=== PATIENT | female | born 1985 | race Caucasian/White ===

== ENCOUNTER → 2019-05-08 13:03 | Outpatient (CLI) | payer BC, SELFPAY ==
--- NOTE | ~2019-05-08 | US_ITS ---
EXAMINATION: US pelvic complete DATE: 05/08/2019 13:22 INDICATION: Abnormal uterine bleeding Comparison:No prior studies for comparison. TECHNIQUE: Multiple transabdominal sonographic images of the pelvis performed. FINDINGS: The uterus measures 7.2 x 3.4 x 3.2 cm. The endometrial complex measures 6 mm. The right ovary measures 1.9 x 1.9 x 1.4 cm and the left ovary measures 3.3 x 2.3 x 2.6 cm. There ar e small follicles in each ovary. There is no free fluid in the pelvis. There are no abnormal masses seen on either side. IMPRESSION: 1. Normal pelvic ultrasound. Reviewed, dictated and finalized at location A.
== END ==
PROVIDERS: PCP Family Medicine; Visit Provider Nurse Practitioner
DX: N93.8 Other specified abnormal uterine and vaginal bleeding (principal)
CPT/HCPCS: 76856

== ENCOUNTER 2020-03-01 08:54 | Outpatient (NON) | payer SELFPAY ==
[2020-03-01 19:43] LABS: SARS-CoV-2 RNA PCR Negative
== END 2020-03-01 08:55 ==
PROVIDERS: PCP Family Medicine; Visit Provider Family Medicine
DX: R19.7 Diarrhea, unspecified (principal); Z20.822 Contact with and (suspected) exposure to COVID-19
CPT/HCPCS: C9803; U0003

== ENCOUNTER → 2020-09-03 06:31 | Outpatient (CLI) | payer BC, SELFPAY ==
[2020-09-03 21:20] LABS: SARS-CoV-2 RNA PCR Negative
== END ==
PROVIDERS: PCP Family Medicine; Visit Provider Family Medicine
DX: Z01.812 Encounter for preprocedural laboratory examination (principal); Z20.822 Contact with and (suspected) exposure to COVID-19
CPT/HCPCS: C9803; U0003; U0005

== ENCOUNTER → 2020-12-21 02:45 | Outpatient (CLI) | payer BC, SELFPAY ==
[2020-12-21 17:36] LABS: SARS-CoV-2 RNA PCR Negative
== END ==
PROVIDERS: PCP Family Medicine; Visit Provider Family Medicine
DX: Z20.822 Contact with and (suspected) exposure to COVID-19 (principal); J01.90 Acute sinusitis, unspecified
CPT/HCPCS: C9803; U0003; U0005

== ENCOUNTER → 2021-02-23 02:25 | Outpatient (CLI) | payer BC, SELFPAY ==
[2021-02-23 20:33] LABS: SARS-CoV-2 RNA PCR Negative
== END ==
PROVIDERS: PCP Family Medicine; Visit Provider Family Medicine
DX: J02.9 Acute pharyngitis, unspecified (principal); Z20.822 Contact with and (suspected) exposure to COVID-19
CPT/HCPCS: C9803; U0003; U0005

== ENCOUNTER 2021-10-11 01:23 | Day surgery (SDC) | payer BC, SELFPAY ==
[2021-10-06 13:57] VITALS: BMI 29.2
--- NOTE | 2021-10-06 15:20 | SUR.PREOP ---
Report to the Outpatient Waiting Room, entrance under the green pavilion located off [facility], at time 0600 on date . OR Time: . - You and your visitor will be asked to self-screen and do not enter if you have any COVID symptoms. - Only one visitor and NO children visitors are allowed at this time. - The patient visitor is requested to leave or wait in car when not with patient due to restrictions. - A mask is required within the hospital. Patients may have clear liquids (water, carbonated beverages, clear teas, apple juice) until 3 hours prior to surgery with a maximum of 20 ounces. - No food from midnight until time of surgery - Infants may have breast milk until 4 hours before surgery, formula 6 hours prior to surgery. - Children will be allowed to drink immediately following surgery. If applicable, please bring a bottle or sippy cup to assist with drinking. Juice, water, soda, and popsicles are readily available. For infants on formula, please bring formula the day of surgery. Pacifiers are allowed. Take the following medications with a SIP of water the morning of surgery: Medications to discontinue per physician Date to take last dose Please no make-up, nail portuguese, hairspray, perfume, deodorant, or body powder the day of surgery. No jewelry (including any body piercings) or valuables the day of surgery, leave them at home. Please take a shower or bath the night before, or the morning of, surgery with an antibacterial soap. Wear comfortable, loose fitting clothing. Children are encouraged to wear pajamas. - Jewelry must be removed prior to entering the operating room. Rings and piercings that are not removed may be cut off. - The hospital will not accept responsibility for valuables. - Please leave all valuables, including medications, at home the day of surgery. If you are going home after surgery, a licensed motor coach driver must drive you home. - NO public transportation without another adult. - We recommend that an adult stay with you for 24 hours following discharge. - We also recommend that you do not drive, make important decision, drink alcoholic beverages, or take any drugs that were not prescribed by your health care provider for at least 24 hours after your discharge time. For Pediatric surgeries, we recommend two adults accompany the child home (only one inside the building at this time). Follow any additional instructions given to you from your surgeon. If you or anyone in your household have experienced Covid symptoms in the past week, please notify your surgeon or the nurse liaison at the phone number below for possible testing. Telephone instructions given to and asked if any additional questions and then verbalized understanding. Patient advised to call surgeon office or pre surgery nurse liaison [phone] if any additional questions.
--- NOTE | 2021-10-06 15:21 | SUR.PREOP ---
Report to the Outpatient Waiting Room, entrance under the green pavilion located off [facility], at time 0600 on date 10/11/21. OR Time: 0730. - You and your visitor will be asked to self-screen and do not enter if you have any COVID symptoms. - Only one visitor and NO children visitors are allowed at this time. - The patient visitor is requested to leave or wait in car when not with patient due to restrictions. - A mask is required within the hospital. Patients may have clear liquids (water, carbonated beverages, clear teas, apple juice) until 3 hours prior to surgery with a maximum of 20 ounces. - No food from midnight until time of surgery - Infants may have breast milk until 4 hours before surgery, infant formula 6 hours prior to surgery. - Children will be allowed to drink immediately following surgery. If applicable, please bring a bottle or sippy cup to assist with drinking. Juice, water, soda, and popsicles are readily available. For infants on formula, please bring formula the day of surgery. Pacifiers are allowed. Take the following medications with a SIP of water the morning of surgery: ALPRAZOLAM, ARIPIPRAZOLE, BUPROPION IF NEEDED Medications to discontinue per physician Date to take last dose Please no make-up, nail latvian, hairspray, perfume, deodorant, or body powder the day of surgery. No jewelry (including any body piercings) or valuables the day of surgery, leave them at home. Please take a shower or bath the night before, or the morning of, surgery with an antibacterial soap. Wear comfortable, loose fitting clothing. Children are encouraged to wear pajamas. - Jewelry must be removed prior to entering the operating room. Rings and piercings that are not removed may be cut off. - The hospital will not accept responsibility for valuables. - Please leave all valuables, including medications, at home the day of surgery. If you are going home after surgery, a licensed dinkey driver must drive you home. - NO public transportation without another adult. - We recommend that an adult stay with you for 24 hours following discharge. - We also recommend that you do not drive, make important decision, drink alcoholic beverages, or take any drugs that were not prescribed by your health care provider for at least 24 hours after your discharge time. For Pediatric surgeries, we recommend two adults accompany the child home (only one inside the building at this time). Follow any additional instructions given to you from your surgeon. If you or anyone in your household have experienced Covid symptoms in the past week, please notify your surgeon or the nurse liaison at the phone number below for possible testing. Telephone instructions given to and asked if any additional questions and then verbalized understanding. Patient advised to call surgeon office or pre surgery nurse liaison [phone] if any additional questions.
--- NOTE | 2021-10-06 15:23 | SUR.PREOP ---
Report to the Outpatient Waiting Room, entrance under the green pavilion located off [facility], at time 0600 on date 10/11/21. OR Time: 0730. - You and your visitor will be asked to self-screen and do not enter if you have any COVID symptoms. - Only one visitor and NO children visitors are allowed at this time. - The patient visitor is requested to leave or wait in car when not with patient due to restrictions. - A mask is required within the hospital. Patients may have clear liquids (water, carbonated beverages, clear teas, apple juice) until 3 hours prior to surgery with a maximum of 20 ounces. - No food from midnight until time of surgery - Infants may have breast milk until 4 hours before surgery, infant formula 6 hours prior to surgery. - Children will be allowed to drink immediately following surgery. If applicable, please bring a bottle or sippy cup to assist with drinking. Juice, water, soda, and popsicles are readily available. For infants on formula, please bring formula the day of surgery. Pacifiers are allowed. Take the following medications with a SIP of water the morning of surgery: ALPRAZOLAM, ARIPIPRAZOLE, BUPROPION IF NEEDED Medications to discontinue per physician VITAMINES AND SUPPLIMENTS 3 DAYS PRIOR Date to take last dose 10/11/21 Please no make-up, nail jamaican, hairspray, perfume, deodorant, or body powder the day of surgery. No jewelry (including any body piercings) or valuables the day of surgery, leave them at home. Please take a shower or bath the night before, or the morning of, surgery with an antibacterial soap. Wear comfortable, loose fitting clothing. Children are encouraged to wear pajamas. - Jewelry must be removed prior to entering the operating room. Rings and piercings that are not removed may be cut off. - The hospital will not accept responsibility for valuables. - Please leave all valuables, including medications, at home the day of surgery. If you are going home after surgery, a licensed skidder driver must drive you home. - NO public transportation without another adult. - We recommend that an adult stay with you for 24 hours following discharge. - We also recommend that you do not drive, make important decision, drink alcoholic beverages, or take any drugs that were not prescribed by your health care provider for at least 24 hours after your discharge time. For Pediatric surgeries, we recommend two adults accompany the child home (only one inside the building at this time). Follow any additional instructions given to you from your surgeon. If you or anyone in your household have experienced Covid symptoms in the past week, please notify your surgeon or the nurse liaison at the phone number below for possible testing. Telephone instructions given to MELODY HANSON and asked if any additional questions and then verbalized understanding. Patient advised to call surgeon office or pre surgery nurse liaison [phone] if any additional questions.
[2021-10-11 06:28] VITALS: BP 125/79; PULSE 87; RESP 20; TEMP 36.6; O2SAT 100
--- NOTE | 2021-10-11 06:46 | WPDANESEPPF ---
Anes - Initial Pre Proc Eval Procedure: Operation Date: 10/11/21 07:30 Proposed Procedures p Right Open Carpal Tunnel Release, Right Ulnar Neuroplasty at Elbow - Valentino Botello MD Date/Time: 10/11/21 06:46 Surgeon: Valentino Botello MD Pre Op Diagnosis: Right carpal tunnel syndrome Patient Data Age: 36 Gender: F Height: 1.57 m Weight: 72.57 kg Allergies Allergy/AdvReac Type Severity Reaction Status Date / Time gluten Allergy Intermediate GASTRIC Verified 10/06/21 15:02 UPSET hydrocodone Allergy Intermediate VOMITTING Verified 10/06/21 15:02 Sulfa (Sulfonamide Allergy Intermediate HIVES Verified 10/06/21 15:02 Antibiotics) amitriptyline AdvReac Unknown AFFECTS Verified 10/06/21 15:02 COORDINATION levofloxacin AdvReac Unknown AFFECTS Verified 10/06/21 15:02 COORDINATION Home Medications Medication Instructions Recorded Confirmed Type norgestrel 0.3 mg-ethinyl 1 tablet PO DAILY 01/08/19 10/06/21 History estradiol 30 mcg tablet (Low-Ogestrel (28)) zolmitriptan 5 mg tablet (Zomig) See Rx Instructions PO .COMPLEX 01/08/19 10/06/21 History valacyclovir 1 gram tablet 1,000 mg PO .COMPLEX #30 tabs 01/12/19 10/06/21 Rx clindamycin phosphate 1 % lotion 1 applic topical BID #60 mL 11/19/19 10/06/21 Rx cyanocobalamin (vitamin B-12) 1,000 mcg PO DAILY #90 tabs 07/19/20 10/06/21 Rx 1,000 mcg tablet bupropion HCl 300 mg 24 hr tablet, 300 mg PO QAM #90 tabs 01/18/21 10/06/21 Rx extended release (Wellbutrin XL) Linzess 72 mcg capsule 72 mcg PO DAILY #30 caps 04/06/21 10/06/21 Rx (linaclotide) trazodone 50 mg tablet 50 mg PO QHS PRN insomnia #30 tabs 04/10/21 10/06/21 Rx alprazolam 0.5 mg tablet 0.5 mg PO .COMPLEX PRN anxiety #90 05/08/21 10/06/21 Rx tabs montelukast 10 mg tablet 10 mg PO DAILY #90 tabs 05/09/21 10/06/21 Rx aripiprazole 2 mg tablet (Abilify) 2 mg PO . b.i.d. #180 tabs 07/25/21 10/06/21 Rx pantoprazole 40 mg tablet,delayed 40 mg PO QAM #90 tabs 08/07/21 10/06/21 Rx release lisinopril 10 mg tablet 10 mg PO DAILY #30 tabs 08/08/21 10/06/21 Rx Patient hx anesthesia problems: none Family hx anesthesia problems: none Results Review: All pre-operative results and documents have been reviewed as part of the pre-operative evaluation. [facility] Past Medical History Medical History Acute bronchitis Acute non-recurrent maxillary sinusitis Acute sinusitis, unspecified Alopecia BMI 31.0-31.9,adult BMI 35.0-35.9,adult Cough Diarrhea Elevated liver enzymes Encounter for screening for COVID-19 (12/21/20) COVID test 12/21/2020 was negative Exposure to COVID-19 virus Fatigue Folate deficiency anemia Folliculitis Hirsutism Irritable bowel syndrome with constipation Low ferritin level (~05/16/21) ferritin level low at 7 with iron 60 and 17% saturation On 05/16/2021. Mixed hyperlipidemia Morbid obesity with BMI of 40.0-44.9, adult Motion sickness Obesity (BMI 30.0-34.9) Oral herpes Otitis media, right PCOS (polycystic ovarian syndrome) Pharyngitis UTI (urinary tract infection) Vitamin B12 deficiency anemia Vitamin D deficiency, unspecified Surgical History Surgical History History of gastric bypass Family History Family History Grandparent Diabetes mellitus Family history of malignant neoplasm of breast Family history of malignant neoplasm of esophagus Mother Hypertension Father Patient's father is in good health Social History Social History Smoking status: Never smoker Alcohol intake: never Substance use: never Substance use type: does not use Living arrangements: with family Spiritual care concerns: No Anes - Eval Final PreProcedure Day of Procedure 10/11/21 06:46 Patient weight: obese Heart: regular rate and
[2021-10-11] MEDS: SCOPOLAMINE 1.5 MG PATCH TRANSDERM (07:00)
[2021-10-11] MEDS: LACTATED RINGERS 1,000 ML 30 ML IV CONT (07:05)
--- NOTE | 2021-10-11 07:17 | WPDHPUPDATE1 ---
History and Physical Update Update Date/Time: 10/11/21 07:17 History and Physical has been reviewed, including an updated exam of the patient. There are NO changes in the patient's condition. Risks, benefits, and alternatives have been discussed and questions answered. Patient agrees to proceed with procedure.
[2021-10-11] MEDS: LIDO 1%/EPINEPHRINE 1:100,000 10 ML VIAL INFILTRATE (07:45)
--- NOTE | 2021-10-11 07:56 | SUR.OPER ---
carpal tunnel [id number] neuroplasty at elbow [id number]
[2021-10-11 08:40] VITALS: BP 116/79; PULSE 67; RESP 12; O2SAT 94
--- NOTE | 2021-10-11 08:41 | P.OP_ITS ---
Procedure Note - Detailed Date of Procedure 10/11/21 Pre-op Diagnosis Right carpal tunnel syndrome. Right cubital tunnel syndrome. Post-op Diagnosis Same Procedure Performed Right open carpal tunnel release and right ulnar neuroplasty at the elbow with subcutaneous anterior transposition Surgeon Valentino Botello MD Airplane Patroller Aaliyah Manzano Anesthesia MAC Description of Procedure The carpal tunnel and cubital tunnel sites were marked on the patient's extremity in the holding area with her cooperation. And taken to the operating room placed supine on the operating table. She was given IV sedation with LMA and the right upper extremity was prepped and draped in usual fashion. A time- out was held and confirmed. The sites were marked for surgical incisions and locally infiltrated with 1% lidocaine with epinephrine. The extremity was exsanguinated with an Mark wrap and the tourniquet inflated to 250 mmHg. The surgery was begun in the hand 1st with an incision as marked. Blunt dissection through the subcutaneous tissue revealed the palmar aponeurosis. This was well exposed and this and the transverse retinaculum were incised with a 15. Blade opening the canal. Under 3 point retraction retinaculum was divided distally and then proximally to completely release it. No unusual anatomy was noted. The skin was closed with interrupted 5 0 nylon suture. Attention was turned to the elbow this was flexed and supported on folded towels. The incision was made and dissection was carried down to the medial epicondyle. There was significant muscle crossing over the cubital tunnel. This had pushed the nerve up onto the crest of the medial epicondyle. The fascia between the 2 was carefully divided. Proximally there was little area of compression and the digit could be laid alongside the nerve.. on distally the fascia was divided past the area of Mcdaniel's ligament and into the flexor muscle fascia. The Mcdaniel's ligament served as a very strong restrain causing kinking on the nerve as the elbow flexed I believe. Due to the extreme subluxation of this nerve. The nerve was mobilized the skin flap elevated a fascial flap was elevated off the medial epicondyle and the nerve was restrained anteriorly with 3-0 Monocryl sutures in the fascial tissue. There was no c ompression applied to the nerve. The tourniquet was released the site was examined for bleeding points some were electrocoagulated. The skin was then closed with intradermal 3-0 Monocryl sutures at multiple sites and the skin closed with glue.. The usual bandages were applied to both sites and the patient was discharged from the operating room stable condition. She has a prescription for oxycodone 6.. She requested that medication prior to the surgery. Estimated Blood Loss 5 Drains No Packing No Pathology None sent Complications No immediate complications Condition Stable Disposition Same day
[2021-10-11 09:05] VITALS: BP 110/78; PULSE 66; RESP 12
[2021-10-11] MEDS: fentaNYL CITRATE INJ (*CRX) 100 MCG/2 ML VIAL 25 MCG IV PUSH ×4 (09:05→09:47)
[2021-10-11 09:35] VITALS: BP 110/66; PULSE 65; RESP 12
[2021-10-11] MEDS: oxyCODONE HCL (*CRX) 5 MG TAB IR PO (09:35)
== END 2021-10-11 10:15 | disposition home or self-care (01) ==
PROVIDERS: PCP Family Medicine; Visit Provider Plastic Surgery
PROC: (CPT 64721; principal; 2021-10-11 07:30)
DX: G56.01 Carpal tunnel syndrome, right upper limb (principal); G56.21 Lesion of ulnar nerve, right upper limb; E78.5 Hyperlipidemia, unspecified; K58.1 Irritable bowel syndrome with constipation; B00.9 Herpesviral infection, unspecified; E28.2 Polycystic ovarian syndrome; D51.3 Other dietary vitamin B12 deficiency anemia; E55.9 Vitamin D deficiency, unspecified; L68.0 Hirsutism; Z98.84 Bariatric surgery status; E66.9 Obesity, unspecified; Z68.28 Body mass index [BMI] 28.0-28.9, adult
CPT/HCPCS: 64721; 64718; A9270; J2250; J3010; J7120

== ENCOUNTER 2021-11-24 12:30 | Outpatient (RCR) | payer BC, SELFPAY ==
--- NOTE | 2021-11-03 14:27 | OTOPEVAL1 ---
Evaluation Information Assessment Status Evaluation Diagnosis s/p right CTR and right ulnar neuroplasty at the elbow with anterior subcutaneous transposition Onset 10/11/21 Subjective Information Patient reports soreness and tenderness in her surgical sites. She is right hand dominant. States she is unable to make a fist. Reports difficulties with driving, starting her car, holding/using a toothbrush (using left hand right now), or lifting her water bottle with the right hand. She is heavily favoring the left hand. Reports paresthesias in the ulnar 2 digits. Reported Pain Level Pain Score right elbow 4/10 right hand 2/10 Assessment OT Clinical Summary Marlin is referred to outpatient OT following right carpal tunnel release and right cubital tunnel release with anterior subcutaneous transposition of the ulnar nerve. She presents with a decline in right UE use due to deficits with residual weakness, stiffness, and pain. Skilled OT indicated for HEP instruction and progression, modalities, manual therapy, strengthening, and functional therapeutic exercise to facilitate return to work and return to dominant hand use with ADLs. Plan of Care Interventions Therapeutic Exercise,Manual Therapy,Therapeutic Activities,Hot Pack/Cold Pack OT Services Indicated Yes Treatment Frequency and 2x/week for 3 weeks Duration These treatments will address the objective and functional deficits as defined above. The patient will be advanced safely and appropriately in order for the patient to progress towards his/her prior level of function. Additional exercises will be introduced and as well as a comprehensive home exercise program upon discharge, if needed, ?to ensure carryover of functional gains achieved in the clinic. This treatment plan has been reviewed and agreement upon by the patient.
--- NOTE | 2021-11-24 13:14 | OTOPDC ---
Assessment and note entered by Refugio Rodriguez, OTR/L, CHT Evaluation Information Assessment Status Discharge Diagnosis s/p right CTR and right ulnar neuroplasty at the elbow Onset 10/11/21 Subjective Information Patient reports huge improvements functionally, not relying so much on her left/non dominant hand. She is back to being able to brush her teeth with the right hand, starting her car with the right hand about 80% of the time (improved from 0%), and holding/lifting her water bottle. She states her only limitations at this time are heavy lifting (i.e. big potted plants, full laundry basket). She reports continued residual pain from using her arm more. Reported Pain Level Pain Score 3,3: Self Report Additional Pain Score Comments Continues to have fluctuating hand and elbow pain. Rating both 3/10 today. She does notice increased sharp pains when she uses her arm repetitively. She is independent with non-medication pain mgmt (heat, massage, ROM, rest, etc.) Assessment OT Clinical Summary Marlin is referred to outpatient OT following right carpal tunnel release and right cubital tunnel release with anterior subcutaneous transposition of the ulnar nerve. She has made excellent progress with improved ROM and strengthening which has transferred into improved functional right UE use for ADLs. She continues to have some residual pain and weakness, but she is currently independent with non-medication pain management techniques as well as a gradual strengthening program. She understands that her residual pain will take time to feel better. She is in agreement with discharge today. No further skilled OT indicated at this time. Plan of Care OT Services Indicated No
== END 2021-11-24 16:04 | disposition home or self-care (01) ==
LOC: ANHOT 12:30
PROVIDERS: PCP Family Medicine; Visit Provider Plastic Surgery
DX: Z47.89 Encounter for other orthopedic aftercare (principal)
CPT/HCPCS: 97018; 97035; 97110; 97140; 97165

== ENCOUNTER 2022-02-23 02:28 | Day surgery (SDC) | payer BC, SELFPAY ==
[2022-02-20 14:13] VITALS: BMI 28.0
--- NOTE | 2022-02-22 14:02 | PM.HPGS ---
History of Present Illness History of Present Illness Consent: Risks, benefits, and alternatives have been discussed and questions answered. Patient agrees to proceed with procedure. Chief complaint: abdominal pain, diarrhea Narrative: Marlin Marcelino is a 36 year old female with hx of HTN, GERD, Polycystic ovarian disease, hiatal hernia,? gastric bypass surgery 08/2020,and cholecystectomy 10/2020 is here for evaluation of diarrhea for past 2 months with associated left sided abdominal pain. Reports 1-6 bowel movements per day that are very pasty to watery in nature.? Reports urgency with bowel movements with occasional nighttime awakenings.? she occasionally sees bright red blood with stool but believes this is related to hemorrhoids.? Reports associated left-sided abdominal pain that radiates across the suprapubic area and deep down into her rectum.? states pain is constant and progressively getting worse. She had a cholecystectomy 2 years ago does remember having loose stools for a while afterwards. Just a couple days ago our office call in a prescription for cholestyramine which she has taken for couple days so far. Review of Systems Review of Systems: All systems reviewed & are unremarkable except as noted in HPI and below PMFSH Past Medical History Medical History Acute bronchitis Acute non-recurrent maxillary sinusitis Acute sinusitis, unspecified Alopecia BMI 28.0-28.9,adult BMI 29.0-29.9,adult BMI 31.0-31.9,adult BMI 35.0-35.9,adult Chronic anxiety Cough COVID-19 (~08/2021) sick for [address] of the abdomen and pelvis in the ER on 01/24/2022 was unremarkable. Elevated liver enzymes AST 34 with ALT elevated at 53 on 05/16/2021. AST elevated at 58 with ALT elevated at 93 in the ER on 01/24/2022. Encounter for screening for COVID-19 (12/21/20) COVID test 12/21/2020 was negative Exposure to COVID-19 virus Fatigue Folate deficiency anemia Folic acid low at 5.0 on 05/31/2020. Level normal at 18.4 on 05/16/2021. Folliculitis Hirsutism Hypertension Irritable bowel syndrome with constipation Low ferritin level (~05/16/21) ferritin level low at 7 with iron 60 and 17% saturation On 05/16/2021. Mixed hyperlipidemia Total cholesterol 220 with triglycerides 66, HDL 65, LDL 139 with ratio 3.4 on 05/31/2020. Total cholesterol 141, triglycerides 116, HDL 40 and LDL 80 on 05/16/2021. Morbid obesity with BMI of 40.0-44.9, adult Motion sickness Obesity (BMI 30.0-34.9) Oral herpes Otitis media, right Overweight (BMI 25.0-29.9) PCOS (polycystic ovarian syndrome) Pharyngitis UTI (urinary tract infection) Vitamin B12 deficiency anemia Vitamin D deficiency, unspecified Surgical History Surgical History History of gastric bypass Family History Family History Grandparent Diabetes mellitus Family history of malignant neoplasm of breast Family history of malignant neoplasm of esophagus Mother Hypertension Father Patient's father is in good health Social History Social History Smoking status: Never smoker Alcohol intake: never Substance use: never Substance use type: does not use Lack of Transportation: No Lack of Food: Never True Current Housing: I Have Housing Concerned About Future Housing: No Difficulty Paying Gas/Electric Bills: No Difficulty Paying for Meds: No Currently Unemployed: No Education: Bachelor's Degree Difficulty w/ Childcare or Family Care: No Spiritual care concerns: No Meds Home Medications and Allergies Home Medications Medication Instructions Recorded Confirmed Type norgestrel 0.3 mg-ethinyl 1 tablet PO DAILY 01/08/19 02/20/22 History estradiol 30 mcg tablet (Low-Ogestrel (28)) zolmitriptan 5 mg tablet (Zomig) See Rx Instructio
[2022-02-23 07:01] VITALS: BP 120/76; PULSE 104; RESP 18; TEMP 36.5; O2SAT 97
[2022-02-23] MEDS: LACTATED RINGERS 1,000 ML 150 ML IV CONT (07:09)
--- NOTE | 2022-02-23 07:17 | WPDANESEPPF ---
Anes - Initial Pre Proc Eval Procedure: Operation Date: 02/23/22 08:00 Proposed Procedures p Colonoscopy - William Akins MD Date/Time: 02/23/22 07:17 Surgeon: William Akins MD Pre Op Diagnosis: abdominal pain, diarrhea Patient Data Age: 36 Gender: F Height: 1.57 m Weight: 69 kg Last Vital Signs Temp 36.5 C 02/23/22 07:01 Pulse 104 H 02/23/22 07:01 Resp 18 02/23/22 07:01 BP 120/76 02/23/22 07:01 Pulse Ox 97 02/23/22 07:01 O2 Del Method Room Air 02/23/22 07:01 Allergies Allergy/AdvReac Type Severity Reaction Status Date / Time Sulfa (Sulfonamide Allergy Intermediate HIVES Verified 02/23/22 06:53 Antibiotics) gluten AdvReac Intermediate GASTRIC Verified 02/23/22 06:53 UPSET hydrocodone AdvReac Intermediate Vomiting Verified 02/23/22 06:53 amitriptyline AdvReac Unknown AFFECTS Verified 02/23/22 06:53 COORDINATION levofloxacin AdvReac Unknown AFFECTS Verified 02/23/22 06:53 COORDINATION Home Medications Medication Instructions Recorded Confirmed Type norgestrel 0.3 mg-ethinyl 1 tablet PO DAILY 01/08/19 02/20/22 History estradiol 30 mcg tablet (Low-Ogestrel (28)) zolmitriptan 5 mg tablet (Zomig) See Rx Instructions PO .COMPLEX 01/08/19 02/20/22 History valacyclovir 1 gram tablet 1,000 mg PO .COMPLEX #30 tabs 01/12/19 02/20/22 Rx clindamycin phosphate 1 % lotion 1 applic topical BID #60 mL 11/19/19 02/20/22 Rx cyanocobalamin (vitamin B-12) 1,000 mcg PO DAILY #90 tabs 07/19/20 02/20/22 Rx 1,000 mcg tablet Linzess 72 mcg capsule 72 mcg PO DAILY #30 caps 04/06/21 02/20/22 Rx (linaclotide) trazodone 50 mg tablet 50 mg PO QHS PRN insomnia #30 tabs 04/10/21 02/20/22 Rx montelukast 10 mg tablet 10 mg PO DAILY #90 tabs 05/09/21 02/20/22 Rx pantoprazole 40 mg tablet,delayed 40 mg PO QAM #90 tabs 08/07/21 02/20/22 Rx release lisinopril 10 mg tablet 10 mg PO DAILY #30 tabs 08/08/21 02/20/22 Rx tramadol 50 mg tablet 50 - 100 mg PO Q6H PRN pain #6 tabs 10/11/21 02/20/22 Rx fluticasone propionate 50 1 spray intranasal BID #48 grams 10/31/21 02/20/22 Rx mcg/actuation nasal spray,suspension (Flonase Allergy Relief) scopolamine base 1 mg over 3 days 1 patch transdermal Q3D PRN motion 10/31/21 02/20/22 Rx transdermal patch sickness #10 ea bupropion HCl 150 mg 24 hr tablet, 150 mg PO QAM #30 tabs 11/02/21 02/20/22 Rx extended release (Wellbutrin XL) escitalopram oxalate 20 mg tablet 20 mg PO . q.h.s. #90 tabs 11/23/21 02/20/22 Rx (Lexapro) alprazolam 0.5 mg tablet 0.5 mg PO .COMPLEX PRN anxiety #90 11/27/21 02/20/22 Rx tabs aripiprazole 2 mg tablet (Abilify) 4 mg PO . q.a.m. #180 tabs 01/25/22 02/20/22 Rx hyoscyamine sulfate 0.125 mg tablet 0.125 mg PO QID 1 month #120 tabs 02/14/22 02/20/22 Rx cholestyramine (with sugar) 4 gram 4 g PO BID #348.6 grams 02/16/22 02/20/22 Rx oral powder (Questran) Patient hx anesthesia problems: none Family hx anesthesia problems: none Results Review: All pre-operative results and documents have been reviewed as part of the pre-operative evaluation. [facility] Past Medical History Medical History Acute bronchitis Acute non-recurrent maxillary sinusitis Acute sinusitis, unspecified Alopecia BMI 28.0-28.9,adult BMI 29.0-29.9,adult BMI 31.0-31.9,adult BMI 35.0-35.9,adult Chronic anxiety Cough COVID-19 (~08/2021) sick for [address] of the abdomen and pelvis in the ER on 01/24/2022 was unremarkable. Elevated liver enzymes AST 34 with ALT elevated at 53 on 05/16/2021. AST elevated at 58 with ALT elevated at 93 in the ER on 01/24/2022. Encounter for screening for COVID-19 (12/21/20) COVID test 12/21/2020 was negative Exposure to COVID-19 virus Fatigue Folate deficiency anemia Folic acid low at 5.0 on 05/31/2020. Level normal at 18.4 on 05/16/2021. Folliculitis Hirsutism Hypertension Irritable bowel syndrome with constipation L
[2022-02-23] MEDS: SIMETHICONE ORAL SUSPENSION 20 MG/0.3 ML 30 ML BOTTLE 0.6 ML IRRIGATION (08:01)
[2022-02-23 08:09] VITALS: BP 109/56; PULSE 75; RESP 17; O2SAT 100
[2022-02-23 08:19] VITALS: BP 107/63; PULSE 76; RESP 17; O2SAT 100
[2022-02-23 08:29] VITALS: BP 117/74; PULSE 74; RESP 18; O2SAT 100
== END 2022-02-23 08:35 | disposition home or self-care (01) ==
PROVIDERS: PCP Family Medicine; Visit Provider Internal Medicine Gastroenterology
PROC: 0DJD8ZZ Inspection of Lower Intestinal Tract, Via Natural or Artificial Opening Endoscopic (ICD-10-PCS; CPT 45378; principal; 2022-02-23 08:00)
DX: Z12.11 Encounter for screening for malignant neoplasm of colon (principal); R19.7 Diarrhea, unspecified; I10 Essential (primary) hypertension; K21.9 Gastro-esophageal reflux disease without esophagitis; E28.2 Polycystic ovarian syndrome; Z98.84 Bariatric surgery status; F41.9 Anxiety disorder, unspecified
CPT/HCPCS: 45380; 88305; J2704; J7120

== ENCOUNTER → 2022-10-02 15:44 | Outpatient (CLI) | payer BC, SELFPAY ==
--- NOTE | ~2022-10-02 | US_ITS ---
Renal-Bladder ultrasound Clinical History: Renal stone Technique: Real-time sonographic imaging of the kidneys and urinary bladder was performed. Findings: The right kidney measures 9.2 cm in length and the left kidney measures 10.1 cm. There is n o hydronephrosis or renal calculus identified. Renal cortical echogenicity is within normal limits. N o renal mass lesion is identified. The urinary bladder is moderately distended at the time of this exam. No intraluminal echoes are iden tified. No abnormal wall thickening is seen. Impression: Unremarkable ultrasound of the kidneys and urinary bladder. Reviewed, dictated and finalized at location . Impression: Unremarkable ultrasound of the kidneys and urinary bladder.
== END ==
PROVIDERS: PCP Family Medicine; Visit Provider Internal Medicine Nephrology
DX: N20.0 Calculus of kidney (principal)
CPT/HCPCS: 76775

== ENCOUNTER 2023-07-05 13:50 | Emergency (ER) | payer BC, SELFPAY ==
--- NOTE | ~2023-07-05 | CT_ITS ---
EXAMINATION: CT abdomen pelvis w con DATE: 07/05/2023 16:31 INDICATION: Left lower quadrant and epigastric abdominal pain. TECHNIQUE: Computed tomography (CT) of the abdomen and pelvis was performed with 100 mL Omnipaque 350 intravenous contrast. Automated exposure control and iterative reconstruction technique were employe d. The dose-length product was 261.06 mGy-cm. COMPARISON: CT abdomen and pelvis 11/25/2008 FINDINGS: The visualized portions of the lung bases demonstrate minimal atelectasis on the right. No pleural effusion. The heart size is normal. No pericardial effusion. The liver demonstrates focal alem atosis adjacent to the falciform ligament. The gallbladder is absent. The spleen, pancreas, adrenal g lands, and kidneys are normal. There are fibroids measuring up to 14 mm in the uterus. There are no d ilated loops of bowel. The appendix is normal. There are changes of gastric bypass procedure. There a re no pathologically enlarged lymph nodes. There is no free intraperitoneal fluid. There are changes of arthrodesis procedure of right sacroiliac joint. IMPRESSION: 1. Uterine fibroids. Reviewed, dictated and finalized at location A. IMPRESSION: 1. Uterine fibroids.
[2023-07-05 13:57] VITALS: BP 128/68; PULSE 91; RESP 19; TEMP 36.6; O2SAT 100
--- NOTE | 2023-07-05 15:31 | ED.ABDPAIN ---
HPI - Abdominal Pain General Chief Complaint: Abdominal Pain <JUAQUIN Regalado Last Filed: 07/05/23 15:38> Stated Complaint: Abdominal pain <JUAQUIN Regalado Last Filed: 07/05/23 15:38> Time Seen by Provider: 07/05/23 15:31 <JUAQUIN Regalado Last Filed: 07/05/23 15:38> Focused HPI: Patient is a 37 y/o female, with PMH of gastric bypass, who presents to the ED with c/o abdominal pain. Patient reports having pain throughout her lower abdomen, worse on the left side intermittently for the past few weeks. States pain has progressively worsened, been constant since yesterday. Had an outpatient CT scan on Saturday at [facility] which showed enteritis. Has been trying Tylenol w/o relief. Reports nausea with dry heaving, indigestion, diarrhea. Denies vomiting, rectal bleeding, melena, fevers. Patient saw her bariatric surgeon today and had an outpatient endoscopy, which she reports was normal. GENERAL: Well-appearing, well-nourished, and in no acute distress. HEAD: Normocephalic, atraumatic. CHEST: Clear to auscultation. ?No respiratory distress. HEART: Regular rate and rhythm.? ABD: TTP in LLQ, L mid abdomen, epigastric region. No rebound. Normoactive BS. NEURO: ?Alert and oriented x3. Patient screened in triage and initial orders placed.? ?Additional care and disposition to be based upon?diagnostic testing and treatment. <UJAQUIN Regalado Last Filed: 07/05/23 15:38> Source: patient <JUAQUIN Regalado Last Filed: 07/05/23 15:38> Mode of arrival: ambulatory <JUAQUIN Regalado Last Filed: 07/05/23 15:38> Limitations: no limitations <JUAQUIN Regalado Last Filed: 07/05/23 15:38> History of Present Illness HPI narrative: Agree with HPI. Patient with EGD today by bariatric surgeon. Some crampy/sharp left-sided upper abdominal pain. <Campos Cervantes MD - Last Filed: 07/05/23 17:15> Related Data Home Medications: Home Medications Medication Instructions Recorded Confirmed norgestrel 0.3 mg-ethinyl 1 tablet PO DAILY 01/08/19 01/02/23 estradiol 30 mcg tablet (Low-Ogestrel (28)) ferrous sulfate 325 mg (65 mg 325 mg PO DAILY 01/02/23 01/02/23 iron) tablet,delayed release semaglutide (weight loss) 1.7 1.7 mg subcut WEEKLY 01/02/23 01/02/23 mg/0.75 mL subcutaneous pen injector (Wegovy) <Lois Gibbs PA-C - Last Filed: 07/05/23 15:38> Allergies/Adverse Reactions: Allergies Allergy/AdvReac Type Severity Reaction Status Date / Time Sulfa (Sulfonamide Allergy Intermediate HIVES Verified 01/02/23 13:50 Antibiotics) gluten AdvReac Intermediate GASTRIC Verified 01/02/23 13:50 UPSET hydrocodone AdvReac Intermediate Vomiting Verified 01/02/23 13:50 amitriptyline AdvReac Unknown AFFECTS Verified 01/02/23 13:50 COORDINATION levofloxacin AdvReac Unknown AFFECTS Verified 01/02/23 13:50 COORDINATION <Lois Gibbs PA-C - Last Filed: 07/05/23 15:38> Review of Systems Review of Systems: All systems reviewed & are unremarkable except as noted in HPI and below <Campos Cervantes MD - Last Filed: 07/05/23 17:15> Constitutional: Constitutional: Reports no additional constitutional complaints <Campos Cervantes MD - Last Filed: 07/05/23 17:15> ENT: Reports system reviewed and no additional complaints, except as documented <Campos Cervantes MD - Last Filed: 07/05/23 17:15> Cardiovascular: Cardiovascular: Reports no additional cardiovascular complaints <Campos Cervantes MD - Last Filed: 07/05/23 17:15> Respiratory: Respiratory: Reports no additional respiratory complaints <Campos Cervantes MD - Last Filed: 07/05/23 17:15> Gastrointestinal: Gastrointestinal: Reports abdominal pain, Denies diarrhea, Denies nausea and Denies vomiting <Campos Cervantes MD - Last Filed: 07/05/23 17:15> Genitourinary: Genitourinary: Reports no ad
[2023-07-05 15:40] LABS: Basophils Absolute Auto 0.1 K/mm3 (0.0-0.1); Basophils Percent Auto 0.7 % (0.2-1.2); Eosinophils Absolute Auto 0.1 K/mm3 (0-0.3); Eosinophils Percent Auto 0.7 % (0-4.4); Hemoglobin 14.1 g/dL (12.0-15.0); Immature Granulocyte Absolute 0.02 K/mm3 (0.00-0.031); Immature Granulocyte Percent A 0.3 % (0-0.5); Lymphocytes Absolute Auto 1.85 K/mm3 (0.9-3.2); Lymphocytes Percent Auto 25.4 % (18.3-44.2); Mean Corpuscular HGB Conc 32.8 g/dl (32-36); Mean Corpuscular Hemoglobin 32.4 pg (26-34); Mean Corpuscular Volume 98.9 fl (80-100); Mean Platelet Volume 8.6 fl (7.4-10.4); Monocytes Absolute Auto 0.6 K/mm3 (0.1-0.6); Monocytes Percent Auto 8.2 % (2.6-8.5); Neutrophils Absolute Auto 4.7 K/mm3 (1.3-6.7); Neutrophils Percent Auto 64.7 % (45.5-73.1); Platelet Count Result 430 k/mm3 (150-375); Red Blood Count 4.35 M/mm3 (4.2-5.4); Red Cell Distribution Width 12.5 % (11.5-14.5); White Blood Count 7.3 K/mm3 (4.5-10.0)
[2023-07-05 15:41] LABS: Appearance Urine Clear (Clear); Bilirubin Urine Negative (Negative); Blood Urine Negative (Negative); Color Urine Yellow (Yellow); Glucose Urine UA Negative (Negative); Ketones Urine Negative (Negative); Leukocyte Esterase Ur Negative LEU/UL (Negative); Nitrate Urine Negative (Negative); Protein Urine Negative (Negative); Specific Grav Ur 1.022 (1.001-1.035)
[2023-07-05 15:53] LABS: Add Urine Microscopic? NO
[2023-07-05] MEDS: ONDANSETRON INJ 4 MG/2 ML VIAL IV PUSH (15:58)
[2023-07-05] MEDS: DICYCLOMINE HCL 10 MG CAPSULE 20 MG PO (15:58)
[2023-07-05] MEDS: PANTOPRAZOLE SODIUM IV 40 MG VIAL IV PUSH (15:59)
[2023-07-05] MEDS: BELLADONNA ALK/PHENOB ELIX 10 ML, MAG HYDROX/ALUMINUM HYD/SIMETH 30 ML, LIDOCAINE HCL 2... PO (15:59)
[2023-07-05 16:05] LABS: Alanine Aminotransferase 37 U/L (6-35); Albumin Level 4.8 g/dL (3.5-5.1); Alkaline Phosphatase 66 U/L (38-126); Anion Gap 9 mmol/L (4-12); Aspartate Amino Transferase 36 U/L (14-36); Bilirubin,Total 0.6 mg/dL (0.2-1.3); Blood Urea Nitrogen 7 mg/dL (7-17); Calcium 9.5 mg/dL (8.4-10.2); Carbon Dioxide 24 mmol/L (22-30); Chloride 105 mmol/L (98-107); Estimated CRCL calculation 86 ml/min; Estimated Glomerular Filt Rate > 60; Glucose 81 mg/dL (65-110); Lipase 106 U/L (23-300); Sodium 138 mmol/L (137-145)
[2023-07-05 16:15] LABS: Magnesium 2.2 mg/dL (1.6-2.3)
[2023-07-05 17:29] VITALS: BP 125/86; PULSE 86; RESP 19; O2SAT 99
== END 2023-07-05 17:51 | disposition home or self-care (01) ==
PROVIDERS: Physician Assistant; Emergency Provider Emergency Medicine; PCP Family Medicine
DX: R10.32 Left lower quadrant pain (principal); I10 Essential (primary) hypertension; E28.2 Polycystic ovarian syndrome; E78.2 Mixed hyperlipidemia; E55.9 Vitamin D deficiency, unspecified; D51.9 Vitamin B12 deficiency anemia, unspecified; Z98.84 Bariatric surgery status; Z86.16 Personal history of COVID-19; Z87.442 Personal history of urinary calculi; Z90.49 Acquired absence of other specified parts of digestive tract; Z79.85 Long-term (current) use of injectable non-insulin antidiabetic drugs; D25.9 Leiomyoma of uterus, unspecified
CPT/HCPCS: 36415; 74177; 80053; 81003; 81025; 83690; 83735; 85025; 96374; 96375; 99284; A9270; C9113; J2405; Q9967

== ENCOUNTER 2023-07-10 11:37 | Outpatient (CLI) | payer BC, SELFPAY ==
--- NOTE | ~2023-07-10 | US_ITS ---
EXAMINATION: US transvaginal DATE: 07/10/2023 12:07 INDICATION: Abnormal uterine bleeding. TECHNIQUE: Multiple transvaginal sonographic images of the pelvis were obtained. COMPARISON: CT abdomen and pelvis 07/05/2023 FINDINGS: The uterus measures 8.0 x 3.2 x 4.5 cm. There is no free fluid in the pelvis. The endometrial complex measures 2 mm in thickness. There is a 1.8 cm intramural fibroid. There is a 0.9 cm subserosal fibro id. There is a 0.6 cm subserosal fibroid. The right ovary measures 3.3 x 2.2 x 2.0 cm. The left ovary measures 2.6 x 1.9 x 1.3 cm. There is normal vascular flow in the ovaries. IMPRESSION: 1. Uterine fibroids. Reviewed, dictated and finalized at location E. IMPRESSION: 1. Uterine fibroids.
== END 2023-07-10 11:38 ==
LOC: MICIMG 11:40
PROVIDERS: PCP Nurse Practitioner Women's Health; Visit Provider Nurse Practitioner Women's Health
DX: N93.8 Other specified abnormal uterine and vaginal bleeding (principal); D25.1 Intramural leiomyoma of uterus; D25.2 Subserosal leiomyoma of uterus
CPT/HCPCS: 76830

== ENCOUNTER 2023-07-29 03:19 | Day surgery (SDC) | payer BC, SELFPAY ==
[2023-07-24 11:00] VITALS: BMI 23.3
[2023-07-29 12:51] VITALS: BP 138/78; PULSE 90; RESP 18; TEMP 36.6; O2SAT 100
[2023-07-29] MEDS: LACTATED RINGERS 1,000 ML 150 ML IV CONT (13:28)
[2023-07-29] MEDS: ONDANSETRON INJ 4 MG/2 ML VIAL IV PUSH (13:49)
--- NOTE | 2023-07-29 13:55 | WPDANESEPPF ---
Anes - Initial Pre Proc Eval Procedure: Operation Date: 07/29/23 14:30 Proposed Procedures p Colonoscopy - Mychal Cheek MD Date/Time: 07/29/23 13:55 Surgeon: Mychal Cheek MD Pre Op Diagnosis: abnormal imaging, CIBH, Abdominal pain Patient Data Age: 37 Gender: F Height: 1.57 m Weight: 58.7 kg Last Vital Signs Temp 97.9 F 07/29/23 12:51 Pulse 90 07/29/23 12:51 Resp 18 07/29/23 12:51 BP 138/78 07/29/23 12:51 Pulse Ox 100 07/29/23 12:51 O2 Del Method Room Air 07/29/23 12:51 Allergies Allergy/AdvReac Type Severity Reaction Status Date / Time Sulfa (Sulfonamide Allergy Intermediate HIVES Verified 07/29/23 12:50 Antibiotics) gluten AdvReac Intermediate GASTRIC Verified 07/29/23 12:50 UPSET hydrocodone AdvReac Intermediate Vomiting Verified 07/29/23 12:50 amitriptyline AdvReac Unknown AFFECTS Verified 07/29/23 12:50 COORDINATION levofloxacin AdvReac Unknown AFFECTS Verified 07/29/23 12:50 COORDINATION Home Medications Medication Instructions Recorded Confirmed Type norgestrel 0.3 mg-ethinyl 1 tablet PO DAILY 01/08/19 07/24/23 History estradiol 30 mcg tablet (Low-Ogestrel (28)) cyanocobalamin (vitamin B-12) 1,000 mcg PO DAILY #90 tabs 07/19/20 07/24/23 Rx 1,000 mcg tablet bupropion HCl 150 mg 24 hr tablet, 150 mg PO QAM #30 tabs 10/10/22 07/24/23 Rx extended release (Wellbutrin XL) ferrous sulfate 325 mg (65 mg 325 mg PO DAILY 01/02/23 07/24/23 History iron) tablet,delayed release folic acid 1 mg tablet 1 mg PO DAILY #90 tabs 01/02/23 07/24/23 Rx aripiprazole 2 mg tablet (Abilify) 4 mg PO . q.a.m. #180 tabs 02/11/23 07/24/23 Rx alprazolam 0.5 mg tablet 0.5 mg PO .COMPLEX PRN anxiety #90 06/07/23 07/24/23 Rx tabs dicyclomine 20 mg tablet 20 mg PO QID PRN abdominal pain 07/17/23 07/24/23 Rx #60 tabs montelukast 10 mg tablet 10 mg PO DAILY #90 tabs 07/17/23 07/24/23 Rx pantoprazole 40 mg tablet,delayed 40 mg PO BID #180 tabs 07/17/23 07/24/23 Rx release trazodone 50 mg tablet 50 mg PO .COMPLEX PRN insomnia #60 07/17/23 07/24/23 Rx tabs venlafaxine 150 mg 150 mg PO QAM 07/17/23 07/24/23 History capsule,extended release 24 hr (Effexor XR) fluticasone propionate 50 1 spray intranasal BID PRN Nasal 07/24/23 07/24/23 History mcg/actuation nasal Congestion spray,suspension (Flonase Allergy Relief) valacyclovir 1 gram tablet 1,000 mg PO BID PRN Cold Sores 07/24/23 07/24/23 History zolmitriptan 5 mg tablet (Zomig) See Rx Instructions PO .COMPLEX 07/24/23 07/24/23 History PRN migraines Patient hx anesthesia problems: none Family hx anesthesia problems: none Results Review: All pre-operative results and documents have been reviewed as part of the pre-operative evaluation. [facility] Past Medical History Medical History (Updated 07/17/23 @ 09:07 by Charles Rod MD) Abdominal pain Abnormal abdominal CT scan Acute bronchitis Acute non-recurrent maxillary sinusitis Acute sinusitis, unspecified Alopecia Bilateral sacroiliitis treated surgically January, with revision on 04/12/2023. BMI 23.0-23.9, adult BMI 28.0-28.9,adult BMI 29.0-29.9,adult BMI 31.0-31.9,adult BMI 35.0-35.9,adult Bowel habit changes Chronic anxiety (11/28/22) Chronic low back pain with right-sided sciatica Cough COVID-19 (~08/2021) sick for [address] of the abdomen and pelvis in the ER on 01/24/2022 was unremarkable. Elevated liver enzymes AST 34 with ALT elevated at 53 on 05/16/2021. AST elevated at 58 with ALT elevated at 93 in the ER on 01/24/2022. AST 30 with ALT elevated at 47 on 11/28/2022. Encounter for screening for COVID-19 (12/21/20) COVID test 12/21/2020 was negative Enteritis Exposure to COVID-19 virus Fatigue Folate deficiency anemia Folic acid low at 5.0 on 05/31/2020. Level normal at 18.4 on 05/16/2021. level low at 3.6 with hemoglobin 14.5 on 11/28/2022. Folliculitis H
--- NOTE | 2023-07-29 14:00 | WPDHPUPDATE1 ---
History and Physical Update Update Date/Time: 07/29/23 14:00 History and Physical has been reviewed, including an updated exam of the patient. There are NO changes in the patient's condition. Risks, benefits, and alternatives have been discussed and questions answered. Patient agrees to proceed with procedure.
[2023-07-29 14:22] VITALS: BP 108/67; PULSE 75; RESP 18; O2SAT 100
[2023-07-29 14:32] VITALS: BP 113/84; PULSE 71; RESP 18; O2SAT 98
[2023-07-29 14:38] VITALS: BP 118/61; PULSE 76; RESP 18; O2SAT 98
== END 2023-07-29 14:57 | disposition home or self-care (01) ==
PROVIDERS: PCP Family Medicine; Referring Provider Nurse Practitioner Family; Visit Provider Internal Medicine Gastroenterology
PROC: 0DJD8ZZ Inspection of Lower Intestinal Tract, Via Natural or Artificial Opening Endoscopic (ICD-10-PCS; CPT 45378; principal; 2023-07-29 14:30)
DX: K64.8 Other hemorrhoids (principal); K21.9 Gastro-esophageal reflux disease without esophagitis; I10 Essential (primary) hypertension; E78.2 Mixed hyperlipidemia; K58.1 Irritable bowel syndrome with constipation; D64.9 Anemia, unspecified; E53.8 Deficiency of other specified B group vitamins; F41.9 Anxiety disorder, unspecified; E83.110 Hereditary hemochromatosis; Z98.84 Bariatric surgery status
CPT/HCPCS: 45378; J2405; J2704; J7120

== ENCOUNTER 2023-08-19 00:12 | Day surgery (SDC) | payer BC, SELFPAY ==
[2023-08-13 14:28] VITALS: BMI 24.4
--- NOTE | 2023-08-13 14:29 | PC.NURSE ---
Report to the Outpatient Waiting Room, entrance under the green pavilion located off [facility], at time _0915_ on date _[id number]_. Planned Procedure Time: _1115_. Time changes happen often and if your time is changed the preop area will call you the afternoon before. - You and your visitor will be asked to self-screen and do not enter if you have any COVID symptoms. - A mask is optional within the hospital at this time. Patients may have clear liquids (water, carbonated beverages, clear teas, apple juice) until 3 hours prior to surgery with a maximum of 20 ounces. - No food from midnight until time of surgery Take the following medications with a SIP of water the morning of surgery: ___Aripiprazole, Bupropion, Venlafaxine DO NOT STOP ANY OF YOUR OTHER PRESCRIPTION MEDICATIONS PRIOR TO SURGERY ?EXCEPT THE FOLLOWING Medications to discontinue per physician All vitamins Date to take last [id number] Please no make-up, nail romansh, hairspray, perfume, deodorant, or body powder the day of surgery. No jewelry (including any body piercings) or valuables the day of surgery, leave them at home. Please take a shower or bath the night before, or the morning of, surgery with an antibacterial soap. Wear comfortable, loose fitting clothing. - Jewelry must be removed prior to entering the operating room. Rings and piercings that are not removed may be cut off. - The hospital will not accept responsibility for valuables. - Please leave all valuables, including medications, at home the day of surgery. If you are going home after surgery, a licensed funeral limousine driver must drive you home. - NO public transportation without another adult if you receive anesthesia. - We recommend that an adult stay with you for 24 hours following discharge. - We also recommend that you do not drive, make important decision, drink alcoholic beverages, or take any drugs that were not prescribed by your health care provider for at least 24 hours after your discharge time. Follow any additional instructions given to you from your surgeon. If you or anyone in your household have experienced Covid symptoms in the past week, please notify your surgeon or the nurse liaison at the phone number below for possible testing. Telephone instructions given to _Marlin__and asked if any additional questions and then verbalized understanding. Patient advised to call surgeon office or pre surgery nurse liaison [phone] if any additional questions.
--- NOTE | 2023-08-19 07:50 | WPDHPUPDATE1 ---
History and Physical Update Update Date/Time: 08/19/23 07:50 History and Physical has been reviewed, including an updated exam of the patient. There are NO changes in the patient's condition. Risks, benefits, and alternatives have been discussed and questions answered. Patient agrees to proceed with procedure.
--- NOTE | 2023-08-19 07:50 | PM.HPGS ---
History of Present Illness History of Present Illness Consent: Risks, benefits, and alternatives have been discussed and questions answered. Patient agrees to proceed with procedure. Chief complaint: Menorrhagia, Fibroids Narrative: Malrin Marcelino is a 37 year old female with menorrhagia and fibroids by ultrasound. It was recommended to undergo D&C hysteroscopy. Risks of infection, bleeding, perforation, and possible pathology are discussed. The risk of fluid imbalance with inability to remove the complete fibroid is also reviewed. Ultrasound does not show the fibroid to be submucosal but intramural. It was reviewed that the ultrasound can be and correct on fibroid location. Patient voices understanding and agrees to proceed. Review of Systems Review of Systems: not repeated day of surgery; patient states no changes in status PMFSH Past Medical History Medical History (Updated 08/19/23 @ 07:57 by Angelica Barker MD) Alopecia Bilateral sacroiliitis treated surgically January, with revision on 04/12/2023. 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 Iron 150 with 54% saturation and ferritin 41 with hemoglobin 14.4 on 02/26/2022. Hirsutism Irritable bowel syndrome with constipation Mixed hyperlipidemia Total cholesterol 220 with triglycerides 66, HDL 65, LDL 139 with ratio 3.4 on 05/31/2020. Total cholesterol 141, triglycerides 116, HDL 40 and LDL 80 on 05/16/2021. Cholesterol 186, HDL 51, triglycerides 99, LDL 114 with ratio 3.6 on 11/28/2022. Oral herpes PCOS (polycystic ovarian syndrome) Protein in urine (11/28/22) trace protein 11/28/2022.24 hour urine with elevated protein of 220 on 09/20/2022. Renal stones (06/29/22) multiple renal stones in the left kidney on x-ray of the lumbar spine 06/27/2022. Normal renal ultrasound on 10/02/2022. TMJ arthralgia Vitamin B12 deficiency anemia Normal at 1065 with hemoglobin 14.5 on 11/28/2022. Vitamin D deficiency, unspecified Surgical History Surgical History (Updated 08/19/23 @ 07:56 by Angelica Barker MD) History of carpal tunnel release right History of cholecystectomy History of D&C 2017 History of decompression of ulnar nerve right History of exploratory laparotomy 2004 secondary to internal bleeding no cause identified History of foot surgery right bunionectomy History of gastric bypass History of sinus surgery Family History Family History Grandparent Diabetes mellitus Family history of malignant neoplasm of breast Family history of malignant neoplasm of esophagus Mother Hypertension Hemochromatosis Father Patient's father is in good health Social History Social History Smoking status: Never smoker Alcohol intake: never Substance use: never Substance use type: does not use Lack of Transportation: No Lack of Food: Never True Current Housing: I Have Housing Concerned About Future Housing: No Difficulty Paying Gas/Electric Bills: No Difficulty Paying for Meds: No Currently Unemployed: No Education: Bachelor's Degree Difficulty w/ Childcare or Family Care: No Living arrangements: with family Occupation/Education: occupation Additional 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
[2023-08-19 09:02] VITALS: BP 126/79; PULSE 88; RESP 18; TEMP 36.7; O2SAT 100
[2023-08-19] MEDS: ACETAMINOPHEN 500 MG TABLET 1000 MG PO (09:58)
[2023-08-19] MEDS: LACTATED RINGERS 1,000 ML 30 ML IV CONT (10:12)
--- NOTE | 2023-08-19 10:58 | WPDANESEPPF ---
Anes - Initial Pre Proc Eval Procedure: Operation Date: 08/19/23 11:15 Proposed Procedures p Hysteroscopy Dilation and Curettage - Angelica Barker MD Date/Time: 08/19/23 10:58 Surgeon: Angelica Barker MD Pre Op Diagnosis: Menorrhagia, Fibroids Patient Data Age: 37 Gender: F Height: 1.55 m Weight: 61.2 kg Last Vital Signs Temp 36.7 C 08/19/23 09:02 Pulse 88 08/19/23 09:02 Resp 18 08/19/23 09:02 BP 126/79 08/19/23 09:02 Pulse Ox 100 08/19/23 09:02 O2 Del Method Room Air 08/19/23 09:02 Allergies Allergy/AdvReac Type Severity Reaction Status Date / Time Sulfa (Sulfonamide Allergy Intermediate HIVES Verified 08/19/23 09:37 Antibiotics) gluten AdvReac Intermediate GASTRIC Verified 08/19/23 09:37 UPSET hydrocodone AdvReac Intermediate Vomiting Verified 08/19/23 09:37 amitriptyline AdvReac Unknown AFFECTS Verified 08/19/23 09:37 COORDINATION levofloxacin AdvReac Unknown AFFECTS Verified 08/19/23 09:37 COORDINATION Home Medications Medication Instructions Recorded Confirmed Type norgestrel 0.3 mg-ethinyl 1 tablet PO DAILY 01/08/19 08/13/23 History estradiol 30 mcg tablet (Low-Ogestrel (28)) cyanocobalamin (vitamin B-12) 1,000 mcg PO DAILY #90 tabs 07/19/20 08/13/23 Rx 1,000 mcg tablet bupropion HCl 150 mg 24 hr tablet, 150 mg PO QAM #30 tabs 10/10/22 08/13/23 Rx extended release (Wellbutrin XL) ferrous sulfate 325 mg (65 mg 325 mg PO DAILY 01/02/23 08/13/23 History iron) tablet,delayed release folic acid 1 mg tablet 1 mg PO DAILY #90 tabs 01/02/23 08/13/23 Rx aripiprazole 2 mg tablet (Abilify) 4 mg PO . q.a.m. #180 tabs 02/11/23 08/13/23 Rx alprazolam 0.5 mg tablet 0.5 mg PO .COMPLEX PRN anxiety #90 06/07/23 08/13/23 Rx tabs dicyclomine 20 mg tablet 20 mg PO QID PRN abdominal pain 07/17/23 08/13/23 Rx #60 tabs montelukast 10 mg tablet 10 mg PO DAILY #90 tabs 07/17/23 08/13/23 Rx pantoprazole 40 mg tablet,delayed 40 mg PO BID #180 tabs 07/17/23 08/13/23 Rx release trazodone 50 mg tablet 50 mg PO .COMPLEX PRN insomnia #60 07/17/23 08/13/23 Rx tabs venlafaxine 150 mg 150 mg PO QAM 07/17/23 08/13/23 History capsule,extended release 24 hr (Effexor XR) fluticasone propionate 50 1 spray intranasal BID PRN Nasal 07/24/23 08/13/23 History mcg/actuation nasal Congestion spray,suspension (Flonase Allergy Relief) valacyclovir 1 gram tablet 1,000 mg PO BID PRN Cold Sores 07/24/23 08/13/23 History zolmitriptan 5 mg tablet (Zomig) See Rx Instructions PO .COMPLEX 07/24/23 08/13/23 History PRN migraines nortriptyline 10 mg capsule 10 mg PO QHS 1 month #30 caps 08/08/23 08/13/23 Rx Patient hx anesthesia problems: post op nausea/vomiting Family hx anesthesia problems: none Results Review: All pre-operative results and documents have been reviewed as part of the pre-operative evaluation. [facility] Past Medical History Medical History Alopecia Bilateral sacroiliitis treated surgically January, with revision on 04/12/2023. 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 Iron 150 with 54% saturation and ferritin 41 with hemoglobin 14.4 on 02/26/2022. Hirsutism Irritable bowel syndrome with constipation Mixed hyperlipidemia Total cholesterol 220 with triglycerides 66, HDL 65, LDL 139 with ratio 3.4 on 05/31/2020. Total cholesterol 141, triglycerides 116, HDL 40 and LDL 80 on 05/16/2021. Cholesterol 186, HDL 51, triglycerides 99, LDL 114 with ratio 3.6 on 11/28/2022. Oral herpes PCOS (polycystic ovarian syndrome) Protein in urine (11/28/22) trace protein 11/28/2022.24 hour urine with elevated protein of 220 on 09/20/2022. Renal stones (06/29/22) multiple renal stones in the left kidney on x-ray of the lumbar spine 06/27/2022. N
[2023-08-19] MEDS: KETOROLAC 30 MG/ML VIAL (*BKC) IV PUSH (11:20)
--- NOTE | 2023-08-19 11:24 | W.PM.PROC2 ---
Procedure Note - Detailed Date of Procedure 08/19/23 Pre-op Diagnosis Menorrhagia, Fibroids Post-op Diagnosis Same Procedure Performed D&C hysteroscopy Surgeon Angelica Barker MD Anesthesia MAC Findings uterus sounds to 8cm and appears grossly normal Description of Procedure The patient is taken to the operating room and placed under anesthesia dorsal lithotomy position. She was prepped and draped in usual sterile fashion. [place] speculum placed in the vagina and the cervix grasped the anterior lip with a tenaculum. The uterus is sounded to 8cm. Cervix is serially dilated to a 7 Hegar. The large Aveta hysteroscope was placed without visible abnormalities it is removed. The sharp OO curette is used to curette the endometrium until a good uterine cry was noted in all areas. All instruments were then removed. Sponge, needle, and instrument counts are correct per the OR staff. Patient was awakened from anesthesia and taken to recovery in stable condition. Estimated Blood Loss 5 Drains No Packing No Pathology Yes ( Endometrial curettings) Complications No immediate complications Condition Stable Disposition PACU
[2023-08-19 11:26] VITALS: BP 113/66; PULSE 86; RESP 16; O2SAT 97
[2023-08-19] MEDS: oxyCODONE HCL (*CRX) 5 MG TAB IR PO (11:42)
[2023-08-19 11:55] VITALS: BP 105/55; PULSE 75; RESP 16; O2SAT 100
[2023-08-19] MEDS: diazePAM INJ (*CRX) 10 MG/2 ML SYRINGE 5 MG IV PUSH (11:57)
--- NOTE | 2023-08-19 12:09 | SUR.PHASEII ---
Dr. Morales notified at 1156 of patient's uncontrolled pain with ordered medications. See new orders.
[2023-08-19 12:25] VITALS: BP 108/60; PULSE 79; RESP 16; O2SAT 99
[2023-08-19 12:55] VITALS: BP 106/61; PULSE 81; RESP 18; O2SAT 99
[2023-08-19] MEDS: HYDROmorphone HCL INJ (*CRX) 1 MG/ML SYR IV PUSH (12:57)
[2023-08-19 13:20] VITALS: BP 105/62; PULSE 75; RESP 18; O2SAT 98
== END 2023-08-19 13:29 | disposition home or self-care (01) ==
PROVIDERS: PCP Family Medicine; Visit Provider Obstetrics & Gynecology Gynecology
PROC: 0U5B8ZZ Destruction of Endometrium, Via Natural or Artificial Opening Endoscopic (ICD-10-PCS; CPT 58563; principal; 2023-08-19 11:15)
DX: N92.0 Excessive and frequent menstruation with regular cycle (principal); F41.9 Anxiety disorder, unspecified; D51.3 Other dietary vitamin B12 deficiency anemia; E78.2 Mixed hyperlipidemia; E55.9 Vitamin D deficiency, unspecified; K58.1 Irritable bowel syndrome with constipation
CPT/HCPCS: 58558; 88305; A9270; J1100; J1170; J1885; J2250; J2405; J2704; J3010; J3360; J7120

== ENCOUNTER 2023-08-22 07:55 | Outpatient (CLI) | payer BC, SELFPAY ==
--- NOTE | ~2023-08-22 | XR_ITS ---
EXAMINATION: XR small bowel follow through DATE: 08/22/2023 10:12 INDICATION: Bloating. Constipation. TECHNIQUE: Oral contrast was administered, and a time course of radiographs of the abdomen was obtain ed. Fluoroscopy of the small bowel was performed. Fluoroscopy exposure time was 0.2 minutes. The tota l number of images was 11. COMPARISON: CT abdomen and pelvis 07/05/2023 FINDINGS: There are changes of gastric bypass procedure. There are no dilated loops of bowel. There is no abnor mal mass or stricture. The terminal ileum is normal. Transit time from the stomach to proximal colon was approximately 1 hour and 15 minutes. There are changes of arthrodesis procedure of right sacroili ac joint. IMPRESSION: 1. Normal small bowel series. Reviewed, dictated and finalized at location A.
== END 2023-08-22 07:56 | disposition home or self-care (01) ==
LOC: ANHIMG 07:57
PROVIDERS: PCP Family Medicine; Visit Provider Nurse Practitioner Family
DX: R93.5 Abnormal findings on diagnostic imaging of other abdominal regions, including retroperitoneum (principal); R10.9 Unspecified abdominal pain
CPT/HCPCS: 74250

== ENCOUNTER 2024-01-20 00:09 | Day surgery (SDC) | payer BC, SELFPAY ==
[2024-01-14 09:54] VITALS: BMI 28.2
--- NOTE | 2024-01-14 09:55 | PC.NURSE ---
Report to the Outpatient Waiting Room, entrance under the green pavilion located off [facility], at time _0615_ on date _[id number]_. Planned Procedure Time: _0815_.? Time changes happen often and if your time is changed the preop area will call you the afternoon before. - You and your visitor will be asked to self-screen and do not enter if you have any COVID symptoms. Please call surgeon if you need to reschedule. - A mask is optional within the hospital at this time. Patients may have clear liquids (water, carbonated beverages, clear teas, apple juice) until 3 hours prior to surgery with a maximum of 20 ounces. - No food from midnight until time of surgery and no smoking. This includes no chewing gum, candy or mints. Take only the following medications with a SIP of water on the morning of surgery: ___Bupropion, Gabapenting, Lamotrigine, Venlafaxine and if needed may use Flonase.___ DO NOT STOP ANY OF YOUR OTHER PRESCRIPTION MEDICATIONS PRIOR TO SURGERY EXCEPT THE FOLLOWING Medications to discontinue per physician ___Vitamins Date to take last eimy__[id number]___ Please no make-up, nail beninese, hairspray, perfume, deodorant, or body powder the day of surgery.? No jewelry (including any body piercings) or valuables the day of surgery, leave them at home.? Please take a shower or bath the night before, or the morning of, surgery with an antibacterial soap.? Wear comfortable, loose fitting clothing.? - Jewelry must be removed prior to entering the operating room.? Rings and piercings that are not removed may be cut off. - The hospital will not accept responsibility for valuables.? - Please leave all valuables, including medications, at home the day of surgery. If you are going home after surgery, a licensed electric lift truck driver must drive you home.? - NO public transportation without another adult if you receive anesthesia. - We recommend that an adult stay with you for 24 hours following discharge. - We also recommend that you do not drive, make important decision, drink alcoholic beverages, or take any drugs that were not prescribed by your health care provider for at least 24 hours after your discharge time. Follow any additional instructions given to you from your surgeon. Telephone instructions given to __Heather__and asked if any additional questions and then verbalized understanding. Patient advised to call surgeon office or pre surgery nurse liaison [phone] if any additional questions.
[2024-01-20] VITALS (8 sets, daily range): BP systolic 114–134; BP diastolic 44–81; PULSE 87–109; RESP 12–20; TEMP 36.3–36.5; O2SAT 92–100
[2024-01-20] MEDS: LACTATED RINGERS 1,000 ML 30 ML IV CONT ×2 (06:45→09:45)
[2024-01-20] MEDS: ACETAMINOPHEN 500 MG TABLET 1000 MG PO (07:00)
[2024-01-20] MEDS: KETOROLAC 15 MG/ML VIAL (*BKC) IV PUSH (07:00)
--- NOTE | 2024-01-20 07:30 | WPDHPUPDATE1 ---
History and Physical Update Update Date/Time: 01/20/24 07:30 History and Physical has been reviewed, including an updated exam of the patient. There are NO changes in the patient's condition. Risks, benefits, and alternatives have been discussed and questions answered. Patient agrees to proceed with procedure.
--- NOTE | 2024-01-20 07:31 | P.HP_ITS ---
History of Present Illness History of Present Illness Consent: Risks, benefits, and alternatives have been discussed and questions answered. Patient agrees to proceed with procedure. Chief complaint: Menorrhagia, Desire Sterilization Narrative: Marlin Marcelino is a 38 year old female has decided to proceed with Treva endometrial ablation for her menorrhagia. Patient with a benign hysteroscopy D&C in July of 2023. In addition the patient wishes to proceed with laparoscopic bilateral salpingectomy for permanent control. Risks of infection, bleeding, injury to internal organs, general anesthesia, and success of both procedures are reviewed. Patient voices understanding and agrees to proceed. Review of Systems Review of Systems: not repeated day of surgery; patient states no changes in status [facility] Past Medical History Medical History (Updated 01/20/24 @ 07:35 by Angelica Barker MD) Alopecia Bilateral sacroiliitis treated surgically January, with revision on 04/12/2023. 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 Iron 150 with 54% saturation and ferritin 41 with hemoglobin 14.4 on 02/26/2022. Hirsutism Irritable bowel syndrome with constipation Mixed hyperlipidemia Total cholesterol 220 with triglycerides 66, HDL 65, LDL 139 with ratio 3.4 on 05/31/2020. Total cholesterol 141, triglycerides 116, HDL 40 and LDL 80 on 05/16/2021. Cholesterol 186, HDL 51, triglycerides 99, LDL 114 with ratio 3.6 on 11/28/2022. Oral herpes PCOS (polycystic ovarian syndrome) Protein in urine (11/28/22) trace protein 11/28/2022.24 hour urine with elevated protein of 220 on 09/20/2022. Renal stones (06/29/22) multiple renal stones in the left kidney on x-ray of the lumbar spine 06/27/2022. Normal renal ultrasound on 10/02/2022. TMJ arthralgia Vitamin B12 deficiency anemia Normal at 1065 with hemoglobin 14.5 on 11/28/2022. Vitamin D deficiency, unspecified Surgical History Surgical History (Updated 01/20/24 @ 07:33 by Angelica Barker MD) History of carpal tunnel release right History of cholecystectomy History of D&C 2017 History of decompression of ulnar nerve right History of exploratory laparotomy 2004 secondary to internal bleeding no cause identified History of foot surgery right bunionectomy History of gastric bypass History of hysteroscopy with D&C July of 2023 History of sinus surgery Family History Family History Grandparent Diabetes mellitus Family history of malignant neoplasm of breast Family history of malignant neoplasm of esophagus Mother Hypertension Hemochromatosis Father Patient's father is in good health Social History Social History Smoking status: Never smoker Alcohol intake: never Substance use: never Substance use type: does not use Lack of Transportation: No Lack of Food: Never True Current Housing: I Have Housing Concerned About Future Housing: No Difficulty Paying Gas/Electric Bills: No Difficulty Paying for Meds: No Currently Unemployed: No Education: Bachelor's Degree Difficulty w/ Childcare or Family Care: No Living arrangements: with family Occupation/Education: occupation 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 Gender identity (if verbalized by the patient): Female Spiritual care concerns: No Meds Home Medications and Allergies Home Medications Medication Instructions Recorded Confirmed Type cyanocobalamin (vitamin B-12) 1,000 mcg PO DAILY #90 tabs 07/19/20 01/14/24 Rx 1,000 mcg tablet folic acid 1 mg tablet 1 mg PO DAILY #90 tabs 01/02/23 01/14/24 Rx montelukast 10 mg tablet 10 mg PO DAILY #90 tabs 07/17/23 01/14/24 Rx pantoprazole 40 mg tablet,delayed 40 mg PO BID #180 tabs 07/17/23 01/14/24 Rx release venlafaxine 150 mg 150 mg PO QAM 07/17/23 01/14/24 History capsule,extended release 24 hr (Effexor XR) fluticasone propionate 50 1 spray intranasal BID PRN Nasal 07/24/23 01/14/24 History mcg/actuation nasal Congestion spray,suspension (Flonase Allergy Relief) valacyclovir 1 gram tablet 1,000 mg PO BID PRN Cold Sores 07/24/23 01/14/24 History zolmitriptan 5 mg tablet (Zomig) See Rx Instructions PO .COMPLEX 07/24/23 01/14/24 History PRN migraines tizanidine 2 mg tablet 2 mg PO TID PRN muscle spasticity 10/22/23 01/14/24 Rx #30 tabs alprazolam 0.5 mg tablet 0.5 mg PO .COMPLEX PRN anxiety #90 11/25/23 01/14/24 Rx tabs dicyclomine 20 mg tablet 20 mg PO QID PRN abdominal pain 12/12/23 01/14/24 Rx #60 tabs bupropion HCl 300 mg 24 hr tablet, 300 mg PO DAILY 01/14/24 01/14/24 History extended release gabapentin 100 mg capsule 200 mg PO TID 01/14/24 01/14/24 History lamotrigine 150 mg tablet 150 mg PO DAILY 01/14/24 01/14/24 History prazosin 2 mg capsule 2 mg PO DAILY 01/14/24 01/14/24 History trazodone 100 mg tablet 200 mg PO HS 01/14/24 01/14/24 History Allergies Allergy/AdvReac Type Severity Reaction Status Date / Time Sulfa (Sulfonamide Allergy Intermediate HIVES Verified 01/14/24 09:44 Antibiotics) gluten AdvReac Intermediate GASTRIC Verified 01/14/24 09:44 UPSET hydrocodone AdvReac Intermediate Vomiting Verified 01/14/24 09:44 amitriptyline AdvReac Unknown AFFECTS Verified 01/14/24 09:44 COORDINATION levofloxacin AdvReac Unknown AFFECTS Verified 01/14/24 09:44 COORDINATION Exam Const: General: healthy appearing and alert Orientation/consciousness: patient oriented x3 Resp: Effort & Inspection: normal respiratory effort GI: GI Palp: Yes Soft to palpation, No Tenderness to palpation present (GI) and No Palpable mass present : External Female Exam: normal external appearance Speculum Exam - Vagina: normal appearance of the vagina and normal vaginal discharge Speculum Exam - Cervix: normal appearance of the cervix Bimanual exam- vagina & uterus: uterine size normal and consistency normal Bimanual Exam- Adnexa, other: normal adnexae and No adnexal tenderness Neuro: General: patient oriented x3 Assessment and Plan Assessment and plan (1) Menorrhagia: Code(s): N92.0 - Excessive and frequent menstruation with regular cycle Status: Acute Assessment and Plan: plan to proceed with Treva endometrial ablation (2) Encounter for sterilization: Code(s): Z30.2 - Encounter for sterilization Status: Acute Assessment and Plan: plan to proceed with bilateral salpingectomy laparoscopic
--- NOTE | 2024-01-20 07:55 | WPDANESEPPF ---
Anes - Initial Pre Proc Eval Procedure: Operation Date: 01/20/24 08:15 Proposed Procedures p Laparoscopic Bilateral Salpingectomy, Hysteroscopy with Treva Endometrial Ablation - Angelica Barker MD Date/Time: 01/20/24 07:55 Surgeon: Angelica Barker MD Pre Op Diagnosis: Menorrhagia, Desire Sterilization Patient Data Age: 38 Gender: F Height: 1.57 m Weight: 70.1 kg Last Vital Signs Temp 97.7 F 01/20/24 07:00 Pulse 87 01/20/24 07:00 Resp 16 01/20/24 07:00 BP 134/74 01/20/24 07:00 Pulse Ox 98 01/20/24 07:00 O2 Del Method Room Air 01/20/24 07:00 Allergies Allergy/AdvReac Type Severity Reaction Status Date / Time Sulfa (Sulfonamide Allergy Intermediate HIVES Verified 01/20/24 07:44 Antibiotics) gluten AdvReac Intermediate GASTRIC Verified 01/20/24 07:44 UPSET hydrocodone AdvReac Intermediate Vomiting Verified 01/20/24 07:44 amitriptyline AdvReac Unknown AFFECTS Verified 01/20/24 07:44 COORDINATION levofloxacin AdvReac Unknown AFFECTS Verified 01/20/24 07:44 COORDINATION Home Medications Medication Instructions Recorded Confirmed Type cyanocobalamin (vitamin B-12) 1,000 mcg PO DAILY #90 tabs 07/19/20 01/14/24 Rx 1,000 mcg tablet folic acid 1 mg tablet 1 mg PO DAILY #90 tabs 01/02/23 01/14/24 Rx montelukast 10 mg tablet 10 mg PO DAILY #90 tabs 07/17/23 01/14/24 Rx pantoprazole 40 mg tablet,delayed 40 mg PO BID #180 tabs 07/17/23 01/14/24 Rx release venlafaxine 150 mg 150 mg PO QAM 07/17/23 01/20/24 History capsule,extended release 24 hr (Effexor XR) fluticasone propionate 50 1 spray intranasal BID PRN Nasal 07/24/23 01/14/24 History mcg/actuation nasal Congestion spray,suspension (Flonase Allergy Relief) valacyclovir 1 gram tablet 1,000 mg PO BID PRN Cold Sores 07/24/23 01/14/24 History zolmitriptan 5 mg tablet (Zomig) See Rx Instructions PO .COMPLEX 07/24/23 01/14/24 History PRN migraines tizanidine 2 mg tablet 2 mg PO TID PRN muscle spasticity 10/22/23 01/14/24 Rx #30 tabs alprazolam 0.5 mg tablet 0.5 mg PO .COMPLEX PRN anxiety #90 11/25/23 01/14/24 Rx tabs dicyclomine 20 mg tablet 20 mg PO QID PRN abdominal pain 12/12/23 01/14/24 Rx #60 tabs bupropion HCl 300 mg 24 hr tablet, 300 mg PO DAILY 01/14/24 01/20/24 History extended release gabapentin 100 mg capsule 200 mg PO TID 01/14/24 01/20/24 History lamotrigine 150 mg tablet 150 mg PO DAILY 01/14/24 01/20/24 History prazosin 2 mg capsule 2 mg PO DAILY 01/14/24 01/14/24 History trazodone 100 mg tablet 200 mg PO HS 01/14/24 01/14/24 History Patient hx anesthesia problems: post op nausea/vomiting Family hx anesthesia problems: none Results Review: All pre-operative results and documents have been reviewed as part of the pre-operative evaluation. [facility] Past Medical History Medical History (Updated 01/20/24 @ 07:35 by Angelica Barker MD) Alopecia Bilateral sacroiliitis treated surgically January, with revision on 04/12/2023. 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 Iron 150 with 54% saturation and ferritin 41 with hemoglobin 14.4 on 02/26/2022. Hirsutism Irritable bowel syndrome with constipation Mixed hyperlipidemia Total cholesterol 220 with triglycerides 66, HDL 65, LDL 139 with ratio 3.4 on 05/31/2020. Total cholesterol 141, triglycerides 116, HDL 40 and LDL 80 on 05/16/2021. Cholesterol 186, HDL 51, triglycerides 99, LDL 114 with ratio 3.6 on 11/28/2022. Oral herpes PCOS (polycystic ovarian syndrome) Protein in urine (11/28/22) trace protein 11/28/2022.24 hour urine with elevated protein of 220 on 09/20/2022. Renal stones (06/29/22) multiple renal stones in the left kidney on x-ray of the lumbar spine 06/27/2022. Normal renal ultrasound on 10/02/2022. TMJ arthralgia Vitamin B12 deficiency anemia Normal at 1065 with hemoglobin 14.5 on 11/28/2022. Vitamin D deficiency, unspecified Surgical History Surgical History (Updated 01/20/24 @ 07:33 by Angelica Barker MD) History of carpal tunnel release right History of cholecystectomy History of D&C 2017 History of decompression of ulnar nerve right History of exploratory laparotomy 2004 secondary to internal bleeding no cause identified History of foot surgery right bunionectomy History of gastric bypass History of hysteroscopy with D&C July of 2023 History of sinus surgery Family History Family History Grandparent Diabetes mellitus Family history of malignant neoplasm of breast Family history of malignant neoplasm of esophagus Mother Hypertension Hemochromatosis Father Patient's father is in good health Social History Social History Smoking status: Never smoker Alcohol intake: never Substance use: never Substance use type: does not use Lack of Transportation: No Lack of Food: Never True Current Housing: I Have Housing Concerned About Future Housing: No Difficulty Paying Gas/Electric Bills: No Difficulty Paying for Meds: No Currently Unemployed: No Education: Bachelor's Degree Difficulty w/ Childcare or Family Care: No Living arrangements: with family Occupation/Education: occupation 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 Informed Consent: The patient's anesthetic plan and its attendant risks and benefits were discussed with the patient/family/POA. Questions were solicited and answers provided to the satisfaction of the patient/family/POA.
[2024-01-20 07:58] LABS: BEDSIDEPREGUCG Negative (Negative)
[2024-01-20] MEDS: SCOPOLAMINE 1 MG PATCH 1 PATCH TRANSDERM (09:03)
--- NOTE | 2024-01-20 09:09 | W.PM.PROC2 ---
Procedure Note - Detailed Date of Procedure 01/20/24 Pre-op Diagnosis Menorrhagia, Desire Sterilization Post-op Diagnosis Same Procedure Performed laparoscopic bilateral salpingectomy Treva endometrial ablation Surgeon Angelica Barker MD Anesthesia General Findings tubes, ovaries, uterus appeared grossly normal uterus sounds to 8cm and endometrium appears normal Description of Procedure The patient is taken to the operating room and placed under anesthesia in the dorsal lithotomy position. She was prepped and draped in the usual sterile fashion. Bladder was drained with a red rubber catheter. [place] speculum was placed in the vagina and the cervix grasped on the anterior lip with a tenaculum. The acorn manipulator was placed and the speculum was removed. Attention was turned to the abdomen where a vertical skin incision was made at the base of the umbilicus. The abdomen was tented and the [place] needle placed. Opening patient pressure was 5mmHg. Water drop test is normal. Pneumoperitoneum was obtained to a patient pressure of 15mmHg. The 5mm Optiview trocar was placed and intra-abdominal placement confirmed with the laparoscope. The patient is placed in Trendelenburg. One incision to the left and one incision to the right of midline above the symphysis pubis are made with a scalpel. Two 5 mm trocars were placed under direct visualization. The right tube was grasped at the fimbriated end. The LigaSure was used to cauterize the mesosalpinx until the cornu was reached. Leaving approximately 2cm of tube at the cornea the tube was crossclamped, cauterized, and cut. The identical procedure was performed on the left side. Good hemostasis is noted bilaterally. All instruments are removed and the pneumoperitoneum was reduced. Skin incisions were closed with 4-0 nylon in an interrupted fashion. Attention was returned to vagina. The bivalve speculum was replaced and the acorn manipulator removed. The uterus is sounded to 8cm. The hysteroscope was placed and with no abnormalities noted it is removed. The cervix was serially dilated to an 8 Hegar. The Treva device is opened and placed with a setting at 5cm. Cavity assessment passed on the 1st attempt. The treatment cycle lasted the full 2minutes. The device is removed and the hysteroscope replaced with good ablation effect noted. All instruments are removed. Sponge, needle, and instrument counts are correct per the OR staff. The patient was awakened from anesthesia and taken to recovery in stable condition. Estimated Blood Loss 5 Drains No Packing No Pathology Yes ( Bilateral tubes) Complications No immediate complications Condition Stable Disposition PACU
[2024-01-20] MEDS: fentaNYL CITRATE INJ (*CRX) 100 MCG/2 ML VIAL 25 MCG IV PUSH ×6 (09:17→10:00)
[2024-01-20] MEDS: MIDAZOLAM HCL (*CRX) 2 MG/2 ML VIAL 1 MG IV PUSH ×2 (09:30→09:48)
[2024-01-20] MEDS: ONDANSETRON INJ 4 MG/2 ML VIAL IV PUSH (09:43)
[2024-01-20] MEDS: ALPRAZolam (*CRX) 0.5 MG TABLET PO (10:30)
[2024-01-20] MEDS: oxyCODONE HCL (*CRX) 5 MG TAB IR PO (10:31)
== END 2024-01-20 11:17 | disposition home or self-care (01) ==
PROVIDERS: PCP Family Medicine; Visit Provider Obstetrics & Gynecology Gynecology
PROC: 0UDB8ZZ Extraction of Endometrium, Via Natural or Artificial Opening Endoscopic (ICD-10-PCS; CPT 58558; principal; 2024-01-20 08:15)
DX: Z30.2 Encounter for sterilization (principal); N92.0 Excessive and frequent menstruation with regular cycle; E78.2 Mixed hyperlipidemia; E28.2 Polycystic ovarian syndrome; K58.1 Irritable bowel syndrome with constipation; E53.8 Deficiency of other specified B group vitamins; E55.9 Vitamin D deficiency, unspecified; F41.9 Anxiety disorder, unspecified; G89.18 Other acute postprocedural pain; G89.29 Other chronic pain; M54.41 Lumbago with sciatica, right side; Z98.890 Other specified postprocedural states; Z90.49 Acquired absence of other specified parts of digestive tract; Z98.84 Bariatric surgery status; Z87.442 Personal history of urinary calculi; Z80.3 Family history of malignant neoplasm of breast; Z80.0 Family history of malignant neoplasm of digestive organs
CPT/HCPCS: 58661; 58563; 88302; A9270; J0330; J1100; J1885; J2003; J2250; J2405; J2704; J3010; J7120